=== PATIENT | male | born 1975 | race Caucasian/White ===

== ENCOUNTER → 2018-04-02 | Outpatient (CLI) | payer OTHER ==
--- NOTE | 2018-04-02 14:09 | REP ---
Clinical: Cough and fever. Technique: PA and lateral. Comparison: 11/11/2005. Findings: Mediastinum and cardiac silhouette are normal. Coarsened markings may reflect bronchitis and possible left perihilar atelectasis. No discrete consolidation, effusion, or pneumothorax. Skeletal structures intact. Impression: Cannot exclude bronchitis or subtle perihilar atelectasis. Electronically Signed by Alistair Hobbs MD 04/02/2018 02:01 P
== END ==
LOC: M WUC 13:21
PROVIDERS: ATTEND Physician Assistant
DX: R05 Cough (principal); R50.9 Fever, unspecified

== ENCOUNTER 2020-08-08 16:07 | Emergency (ER) | payer OTHER ==
[~2020-08-08] VITALS: Ht 175.3 cm; Wt 125.0 kg
[~2020-08-08 16:07] MED LIST: ACET-897 PO; ALBU8.5H; DOXY100C37 PO; FURO20TA2; LOSA100T50; MELO15TA28; PRED20TA PO; PREG50CA2; TADA10TA; TRUL10IN; VENTAER INH
[2020-08-08] MEDS ORDERED: NS 1,000 ML IV ONE (18:10)
[2020-08-08] MEDS ORDERED: ACETAMINOPHEN 325 MG TAB PO ONE (18:10)
--- NOTE | 2020-08-08 18:37 | REP ---
INDICATION: CHEST PAIN. COMPARISON: Comparison portable chest x-ray June 22, 2020. TECHNIQUE: Portable upright AP chest radiograph. FINDINGS: The lungs are exposed at a lesser level of inspiration today. There is a linear density in the left base consistent with platelike atelectasis. The infiltrates seen bilaterally on June 22, 2020 are not visible although markings are diffusely somewhat prominent in the bases, probably related to relatively low level of inspiration. Pleural angles are sharp. Heart is not enlarged.. IMPRESSION: Relatively low level of inspiration. Platelike atelectasis left base. No definite infiltrate.. <Electronically signed by Laith Garcia > 08/08/20 [id number]
[2020-08-08 18:58] LABS: BASO % 0.1 % (0.0-1.0); EOS % 0.1 % (0.0-3.0); HEMATOCRIT 42.8 % (42.0-52.0); HEMOGLOBIN 13.8 g/dl (13.5-17.5); LYMPH # 1.1 10^3/uL (1.5-5.0); LYMPH % 7.6 % (24.0-44.0); MEAN CORPUSCULAR HEMOGLOBIN 28.5 pg (27.0-33.0); MEAN CORPUSCULAR HGB CONC 32.2 g/dl (32.0-36.5); MEAN CORPUSCULAR VOLUME 88.2 fl (80.0-96.0); MONO # 1.1 10^3/uL (0.0-0.8); MONO % 8.2 % (2.0-8.0); NEUTROPHILS # 11.5 10^3/uL (1.5-8.5); NEUTROPHILS % 83.3 % (36.0-66.0); PLATELET COUNT, AUTOMATED 261 10^3/uL (150-450); RED BLOOD COUNT 4.85 10^6/uL (4.30-6.10); WHITE BLOOD COUNT 13.8 10^3/uL (4.0-10.0)
[2020-08-08 19:32] LABS: ALBUMIN 3.7 GM/DL (3.2-5.2); BILIRUBIN,DIRECT 0.2 MG/DL (0.0-0.2); BILIRUBIN,TOTAL 0.8 MG/DL (0.2-1.0); THYROID STIMULATING HORMONE 0.525 uIU/ML (0.358-3.740); TOTAL PROTEIN 7.5 GM/DL (6.4-8.2)
[2020-08-08 19:33] LABS: RSV AMPLIFICATION NEGATIVE (NEGATIVE)
[2020-08-08] MEDS ORDERED: ISOVUE-370 76% 100ML VIAL As Ordered ONE (19:39)
--- NOTE | 2020-08-08 20:01 | ECGEPIP ---
[facility] - ED Test Date: 2020-08-08 Pat Name: BROOKE BUTCHER Department: Room: - Gender: Male Control Systems Engineer: LITZY : [id number] Requested By: MRACO Zhnag Order Number: [id number] Reading MD: Marco Varela Measurements Intervals [place] Rate: 123 P: 9 DE: 140 QRS: 31 QRSD: 86 T: 9 QT: 302 QTc: 432 Interpretive Statements Sinus tachycardia rate increased from tracing done 06-22-20 Electronically Signed on 08-08-2020 20:01:03 EDT by Marco Varela
--- NOTE | 2020-08-08 21:02 | REPVR ---
PROCEDURE INFORMATION: Exam: CTA Chest With Contrast Exam date and time: 08/08/2020 8:02 PM Age: 45 years old Clinical indication: Shortness of breath; Chest wall pain; Additional info: SOB; Right sided chest pain; R/O pe TECHNIQUE: Imaging protocol: Computed tomographic angiography of the chest with contrast. 3D rendering (Not supervised by radiologist): MIP and/or 3D reconstructed images were created by the technologist. Radiation optimization: All CT scans at this facility use at least one of these dose optimization techniques: automated exposure control; mA and/or kV adjustment per patient size (includes targeted exams where dose is matched to clinical indication); or iterative reconstruction. Contrast material: ISOVUE 370; Contrast volume: 75 ml; Contrast route: INTRAVENOUS (IV); COMPARISON: CT ANGIO CHEST 06/22/2020 9:28 PM FINDINGS: Pulmonary arteries: The main pulmonary artery measures 36 mm. No central pulmonary embolism is identified. Aorta: The ascending thoracic aorta measures 30 mm. Lungs: Focal consolidation in the posterolateral right lower lobe with mild bibasilar fibro-atelectatic change and interstitial coarsening. Motion artifact in the lungs with image degradation. Pleural spaces: Trace right pleural effusion. Heart: Unremarkable. No cardiomegaly. No pericardial effusion. Mediastinal space: Minimal hiatal hernia. Lymph nodes: Mild right hilar adenopathy with slightly enlarged nodes which are increased since the prior study. Bones/joints: Unremarkable. No acute fracture. Soft tissues: Unremarkable. IMPRESSION: 1. Decreased areas of focal consolidation in the right middle lobe and lingula since 06/22/2020. Residual fibro-atelectatic change and scar is noted in the areas 2. Increased focal consolidation or mass in the posterolateral right lower lobe since the prior study with new confluent stranding into the inferior right hilum since the prior study. 3. Mild right hilar adenopathy which is increased since the prior study. 4. Minimal right pleural effusion which is slightly increased since the prior study. 5. Motion artifact with image degradation. No central pulmonary embolism is identified. Electronically signed by: Celestino Marquez On 08/08/2020 21:02:29 PM
[2020-08-08] MEDS ORDERED: predniSONE 20 MG TAB PO ONE (21:25)
[2020-08-08] MEDS ORDERED: LevoFLOXacin 750 MG TABLET PO ONE (21:25)
[2020-08-08] MEDS ORDERED: PRED10TA2 PO (21:26)
[2020-08-08] MEDS ORDERED: LEVO750T14 PO (21:26)
[2020-08-08 21:57] VITALS: BP 130/70
--- NOTE | 2020-08-10 08:36 | ED PDOC ---
Post-Departure Follow-Up radiology report faxed to júnior goode Sarah MD Aug 10, 2020 08:36
== END 2020-08-08 22:01 | disposition home or self-care (01) ==
LOC: M ED 16:07
DX: J18.9 Pneumonia, unspecified organism (principal); E11.9 Type 2 diabetes mellitus without complications; I10 Essential (primary) hypertension; J45.909 Unspecified asthma, uncomplicated; Z86.711 Personal history of pulmonary embolism; Z79.899 Other long term (current) drug therapy
CPT/HCPCS: 71045; 71275; 80047; 80076; 83605; 83690; 83880; 84443; 84484; 85025; 87040; 87631; 93005; 93041; 94760; 96360; 99285; J7512; Q9967

== ENCOUNTER → 2020-10-13 | Outpatient (CLI) | payer OTHER ==
[~2020-10-13] MED LIST changes: -DOXY100C37 PO; +DOXY1CAP62 PO; +LEVO750T14 PO; +PRED10TA2 PO
[2020-10-13 17:18] LABS: BASO % 0.4 % (0.0-1.0); EOS # 0.3 10^3/uL (0.0-0.5); EOS % 3.3 % (0.0-3.0); HEMATOCRIT 42.3 % (42.0-52.0); HEMOGLOBIN 13.6 g/dl (13.5-17.5); LYMPH # 2.5 10^3/uL (1.5-5.0); LYMPH % 30.3 % (24.0-44.0); MEAN CORPUSCULAR HEMOGLOBIN 28.3 pg (27.0-33.0); MEAN CORPUSCULAR HGB CONC 32.2 g/dl (32.0-36.5); MEAN CORPUSCULAR VOLUME 87.9 fl (80.0-96.0); MONO # 0.7 10^3/uL (0.0-0.8); MONO % 8.2 % (2.0-8.0); NEUTROPHILS # 4.7 10^3/uL (1.5-8.5); NEUTROPHILS % 57.4 % (36.0-66.0); PLATELET COUNT, AUTOMATED 248 10^3/uL (150-450); RED BLOOD COUNT 4.81 10^6/uL (4.30-6.10); WHITE BLOOD COUNT 8.2 10^3/uL (4.0-10.0)
[2020-10-13 17:38] LABS: ALBUMIN 3.5 GM/DL (3.2-5.2); ALT/SGPT 71 U/L (12-78); BILIRUBIN,TOTAL 0.3 MG/DL (0.2-1.0); BLOOD UREA NITROGEN 11 MG/DL (7-18); CALCIUM LEVEL 8.1 MG/DL (8.5-10.1); CARBON DIOXIDE LEVEL 26 MEQ/L (21-32); CHLORIDE LEVEL 108 MEQ/L (98-107); CREATININE FOR GFR 0.81 MG/DL (0.70-1.30); GLOMERULAR FILTRATION RATE > 60.0 (>60); GLUCOSE, FASTING 112 MG/DL (70-100); POTASSIUM SERUM 3.7 MEQ/L (3.5-5.1); SODIUM LEVEL 139 MEQ/L (136-145); TOTAL PROTEIN 7.2 GM/DL (6.4-8.2)
[2020-10-13 19:41] LABS: ERYTHROCYTE SEDIMENTATION RATE 34 mm/hr (0-15)
== END ==
LOC: M WUC 15:30
PROVIDERS: ATTEND Nurse Practitioner Family
DX: J86.9 Pyothorax without fistula (principal)

== ENCOUNTER → 2024-02-10 | Outpatient (CLI) | payer OTHER ==
[~2024-02-10] MED LIST changes: +DOXY-441 PO; -DOXY1CAP62 PO; -LEVO750T14 PO; +LEVO75TAB PO; +LOSA100T46; -LOSA100T50; -PREG50CA2; +PREG50CA3
== END ==
LOC: M WUC 09:58
PROVIDERS: ATTEND Nurse Practitioner Family
DX: J20.9 Acute bronchitis, unspecified (principal)

== ENCOUNTER 2024-09-18 08:05 | Day surgery (SDC) | payer OTHER ==
[~2024-09-18] VITALS: Ht 177.8 cm; Wt 116.7 kg
[~2024-09-18 08:05] MED LIST changes: +EZET10TA21 PO; +LORA-1164 PO; +LOSA100T46 PO; +PREG50CA87 PO; +PROA1AER2 IN; +TIRZ5PEN SQ
[2024-09-18 10:52] VITALS: TEMP 97.3
[2024-09-18 11:07] VITALS: BP 117/71; O2SAT 97
[2024-09-18] MEDS ORDERED: LIDOCAINE 2% 100 MG/5 ML SDV (FOR ANES.) As Ordered ONE (11:32)
[2024-09-18] MEDS ORDERED: SIMETHICONE 40MG/0.6ML DROPS 30ML As Ordered ONE (11:33)
== END 2024-09-18 11:20 | disposition home or self-care (01) ==
LOC: M OPP 08:05
PROVIDERS: ATTEND Surgery
DX: Z12.11 Encounter for screening for malignant neoplasm of colon (principal); D12.6 Benign neoplasm of colon, unspecified; K64.8 Other hemorrhoids; G47.30 Sleep apnea, unspecified; Z88.5 Allergy status to narcotic agent; Z91.048 Other nonmedicinal substance allergy status; Z79.85 Long-term (current) use of injectable non-insulin antidiabetic drugs; Z79.899 Other long term (current) drug therapy; J45.909 Unspecified asthma, uncomplicated; Z86.711 Personal history of pulmonary embolism

== ENCOUNTER → 2024-12-19 | Outpatient (CLI) | payer OTHER ==
[~2024-12-19] MED LIST changes: -EZET10TA21 PO; +EZET10TA57 PO
[2024-12-24 23:47] LABS: TESTOSTERONE FREE (DIRECT) 37.6 pg/mL (35.0-155.0); TESTOSTERONE TOTAL FOR T&D 178.0 ng/dL (250-1100)
== END ==
LOC: M LAB 06:35
PROVIDERS: ATTEND Emergency Medicine
DX: E29.1 Testicular hypofunction (principal)